=== PATIENT | male | born 1960 | race Caucasian/White ===

== ENCOUNTER 2016-12-07 18:40 | Emergency (ER) | payer OTHER ==
[2016-12-07] MEDS ORDERED: LIDOCAINE 1%-EPI 1:100000 20 ML MDV ONE (18:53)
[2016-12-07] MEDS ORDERED: TETANUS/DIPHTHERIA/PERTUSSIS 0.5 ML SYRINGE IM ONE ×2 (18:59→19:03)
[2016-12-07] MEDS ORDERED: LIDOCAINE 1%-EPI 1:100000 20 ML MDV SUBQ STA (18:59)
--- NOTE | 2016-12-07 19:00 | ED Physician Documentation ---
PD HPI UPPER EXT INJURY - Stated complaint Stated Complaint: RT HAND LAC - Chief complaint Chief Complaint: Laceration - History obtained from History obtained from: Patient, Family - History of Present Illness Location: Right, Finger (thumb) Type of injury: Laceration Where injury occurred: Home Timing - onset: Today Timing - duration: Minutes (30) Timing - details: Abrupt onset Pain level max: 3 Pain level now: 2 Improved by: Rest Worsened by: Moving, Palpating Associated symptoms: No: Weakness, Numbness, Tingling, Swelling Contributing factors: No: Anticoagulated Similar symptoms before: Has not had sx before Recently seen: Not recently seen - Additonal information Additional information: Patient was moving a barbecue out of a truck and lacerated the right thumb. Review of Systems Neurologic: denies: Focal weakness, Numbness PD PAST MEDICAL HISTORY - Past Medical History Past Medical History: Yes Cardiovascular: Hypertension Neuro: Head injury - Past Surgical History Past Surgical History: Yes Neuro: Other - Present Medications Home Medications: Ambulatory Orders Medication Instructions Recorded Confirmed Propranolol [Inderal] 0 mg DAILY 12/07/16 12/07/16 Topiramate 0 mg PO DAILY 12/07/16 12/07/16 Venlafaxine [Effexor] 0 mg DAILY 12/07/16 12/07/16 - Allergies Allergies/Adverse Reactions: Allergies Allergy/AdvReac Type Severity Reaction Status Date / Time No Known Drug Allergies Allergy Verified 12/07/16 18:54 - Social History Does the pt smoke?: Yes Smoking Status: Current every day smoker Does the pt have substance abuse?: No - Immunizations Immunizations: TDAP >10years/unknown PD ED PE NORMAL - Vitals Vital signs reviewed: Yes - General General: Alert and oriented X 3, No acute distress - Extremities Extremities: Other (4 cm laceration to the base of the right thumb. Full range of motion. Neurovascularly intact.) - Neuro Neuro: Alert and oriented X 3 - Psych Psych: Normal mood Results - Vitals Vitals: Vital Signs - 24 hr 12/07/16 12/07/16 18:45 19:21 Temperature 36 C L Heart Rate 90 86 Respiratory 18 16 Rate Blood Pressure 122/81 H 117/79 O2 Saturation 98 99 Oxygen O2 Source Room air Procedures - Laceration (location) Right thumb laceration Length in cm: 4 Wound type: Linear, Into subcut fat, Clean Neurovascular status: Sensory intact, Motor intact, Vascular intact Tendon involvement: Tendon intact. No: Tendon Injury Anesthesia: Lidocaine 1% with epi Wound Preparation: Irrigated copiously NS, Wound explored, To the base. No: FB identified, FB removed Skin layer closure: Nylon, Size #-0 - enter number (4), Sutures - enter # (8) Other: Patient tolerated well, No complications, Neurovascular intact, Dressing applied, Tetanus booster given (Tdap) Complexity: Simple PD MEDICAL DECISION MAKING - ED course Complexity details: considered differential, d/w patient ED course: Patient is a 56-year-old male with a laceration of the base of the right thumb. This was repaired. Tolerated well. Neurovascularly intact. No foreign body. No tendon involvement. Warnings of infection and instructions on wound care given at bedside. Also counseled on how to minimize scarring. Patient counseled regarding signs and symptoms for which I believe and urgent re- evaluation would be necessary. Patient with good understanding of and agreement to plan and is comfortable going home at this time This document was made in part using voice recognition software. While efforts are made to proofread this document, sound alike and grammatical errors may occur. Departure - Departure Disposition: 01 Home, Self Care Clinical Impression: Laceration Condition: Good Instructions: ED Laceration Hand Follow-Up: your,doctor in 10-14 days for suture removal [Other] Comments: Keep the wound clean. Return if you worsen including redness, swelling or drainage from the wound as this is signs of infection and you may need antibiotics. The sutures should be taken out in 10-14 days with your doctor. Discharge Date/Time: 12/07/16 19:21
[2016-12-07 19:21] VITALS: BP 117/79
== END 2016-12-07 19:21 | disposition home or self-care (01) ==
LOC: ED 18:40
DX: S61.011A Laceration without foreign body of right thumb without damage to nail, initial encounter (principal); W26.8XXA Contact with other sharp object(s), not elsewhere classified, initial encounter; Y92.018 Other place in single-family (private) house as the place of occurrence of the external cause; Z23 Encounter for immunization; I10 Essential (primary) hypertension; F17.200 Nicotine dependence, unspecified, uncomplicated
CPT/HCPCS: 12002; 90471; 99283